=== PATIENT | male | born 1985 | race Caucasian/White ===

== ENCOUNTER 2023-10-15 06:41 | Emergency (ER) | payer BC, OTHER ==
[~2023-10-15] VITALS: Ht 165.1 cm; Wt 62.6 kg
[2023-10-15 06:59] VITALS: BP 121/71; TEMP 98.7
[2023-10-15] MEDS ORDERED: OSEL75CA PO (07:10)
[2023-10-15] MEDS ORDERED: GUAI-671 PO (07:10)
[2023-10-15 07:17] VITALS: O2SAT 98
== END 2023-10-15 07:17 | disposition home or self-care (01) ==
LOC: ER 06:52
DX: J11.1 Influenza due to unidentified influenza virus with other respiratory manifestations (principal); Z88.0 Allergy status to penicillin; Z88.2 Allergy status to sulfonamides

== ENCOUNTER 2024-08-22 11:56 | Emergency (ER) | payer BC ==
[~2024-08-22] VITALS: Ht 165.1 cm; Wt 64.9 kg
[~2024-08-22 11:56] MED LIST: GUAI-671 PO; OSEL75CA PO
[2024-08-22] MEDS ORDERED: ONDANSETRON HCL/PF 4 MG/2 ML VIAL ONE ×2 (12:26→13:04)
[2024-08-22] MEDS ORDERED: MORPHINE SULFATE INJ 2 MG/ML DISP.SYRIN ONE ×3 (12:26→13:12)
[2024-08-22] MEDS: ONDANSETRON HCL/PF 4 MG/2 ML VIAL IVP ONE (12:30)
[2024-08-22] MEDS: MORPHINE SULFATE INJ 2 MG/ML DISP.SYRIN IV ONE ×2 (12:32→13:10)
[2024-08-22] MEDS: IV NS 0.9% 1,000 ML BAG IV ONE (12:35)
[2024-08-22 12:36] LABS: BASOPHILS % (AUTO) 0.2 % (0.0-2.0); EOSINOPHILS % (AUTO) 0.2 % (0.0-6.0); HEMATOCRIT 47 % (39-51); HEMOGLOBIN 15.6 g/dL (13.5-17.5); LYMPHOCYTES # (AUTO) 0.6 K/uL (0.8-4.8); LYMPHOCYTES % (AUTO) 5.2 % (20.0-44.0); MEAN CORPUSCULAR HEMOGLOBIN 32 PG (26.0-33.0); MEAN CORPUSCULAR HGB CONC 33 g/dl (31.0-36.0); MEAN CORPUSCULAR VOLUME 96 fL (80-96); MONOCYTES # (AUTO) 0.7 K/uL (0.1-1.30); MONOCYTES % (AUTO) 5.9 % (2.0-12.0); NEUTROPHILS # (AUTO) 10.2 K/uL (1.8-8.9); NEUTROPHILS % (AUTO) 88.5 % (43.0-81.0); PLATELET COUNT (AUTO) 280 K/uL (150-450); RED BLOOD CELL COUNT(AUTO) 4.89 MIL/uL (4.5-6.0); RED CELL DISTRIBUTION WIDTH 13.3 % (11.5-15.0); WHITE BLOOD COUNT (AUTO) 11.5 K/uL (4.3-11.0)
[2024-08-22 12:47] LABS: ALBUMIN 3.9 g/dL (3.4-5.0); BILIRUBIN,DIRECT 0.1 mg/dL (0.0-0.2); BILIRUBIN,TOTAL 0.4 mg/dL (0.2-1.0); CALCIUM, SERUM 8.9 mg/dL (8.5-10.1); TOTAL PROTEIN, SERUM 7.9 g/dL (6.4-8.2)
[2024-08-22] MEDS: ONDANSETRON HCL/PF 4 MG/2 ML VIAL IV ONE (13:05)
[2024-08-22] MEDS ORDERED: ONDA4TAB5 PO (13:34)
[2024-08-22] MEDS ORDERED: LOPE2CAP40 PO (13:34)
[2024-08-22 13:49] VITALS: BP 114/69; TEMP 98; O2SAT 100
== END 2024-08-22 13:50 | disposition home or self-care (01) ==
LOC: ER 11:56
DX: K52.9 Noninfective gastroenteritis and colitis, unspecified (principal); E78.00 Pure hypercholesterolemia, unspecified; F32.A Depression, unspecified; F41.9 Anxiety disorder, unspecified; Z88.0 Allergy status to penicillin; Z88.1 Allergy status to other antibiotic agents; Z88.2 Allergy status to sulfonamides
CPT/HCPCS: 99285; 74176; 96374; 71045; 96361; 96375; 96376; 85025; 80048; 83690; 80076; J2405 ×2; J7030; A4223; J2270 ×3